=== PATIENT | female | born 1970 | race Caucasian/White ===

== ENCOUNTER 2016-12-19 18:08 | Emergency (ER) | payer BC ==
[~2016-12-19 18:08] MED LIST: CARD120 PO; CELEXA40 MG PO; COZ50 PO; CYMBALTA60 PO; DIOV160 PO; FLINTSTONE3 PO; LOP25 PO; LYRICA100 MG PO; NEUR400 PO; PENTASA500 MG PO; PROBIOTIC PO; PROTONIX PO; REG PO; SYN.05 PO; SYN075 PO; ULTRAM50 PO; ZYRTEC ALLGY10 MG PO; [UNRECOGNIZED DRUG - OTHER] T
== END 2016-12-19 21:26 | disposition home or self-care (01) ==
LOC: ER 18:08
DX: D73.89 Other diseases of spleen (principal); R11.0 Nausea; I10 Essential (primary) hypertension; K21.9 Gastro-esophageal reflux disease without esophagitis; F32.9 Major depressive disorder, single episode, unspecified; Z90.710 Acquired absence of both cervix and uterus; Z88.2 Allergy status to sulfonamides; Z88.5 Allergy status to narcotic agent; Z88.8 Allergy status to other drugs, medicaments and biological substances; Z79.899 Other long term (current) drug therapy
CPT/HCPCS: 74176; 74177; 93005; 96374; 99284; J2405; Q9967